=== PATIENT | female | born 1930 ===

== ENCOUNTER 2017-08-06 12:04 | Emergency (ER) | payer MEDICARE, BC ==
[2017-08-06 13:03] VITALS: BP 117/65
--- NOTE | 2017-08-06 13:05 | UC ---
Respiratory Complaint HPI - HPI Summary HPI Summary: 87 y/o female presents to the urgent care accompany by Niece. Pt states she has mild dry cough with weakness since yesterday. Niece reports Pt lives in an assisted living home and when she visited her Yesterday, she was told that Pt hasn't been as active as her usual for the past 2 days. Pt also state mild wheezing at times. Pt denies fever, SOB, chest pain, abdominal pain, N/V/D, urinary symptoms. - History of Current Complaint Chief Complaint: UCRespiratory Stated Complaint: UPPER RESP,DILCIA,FATIGUE Time Seen by Provider: 08/06/17 13:04 Hx Obtained From: Patient, Family/Pediatric Lpn - Niece Hx Last Menstrual Period: n/a Onset/Duration: Gradual Onset, Lasting Days - 2 days, Still Present Timing: Intermittent Episodes Severity Initially: Mild Severity Currently: Mild Pain Intensity: 0 Pain Scale Used: 0-10 Numeric Character: Cough: Nonproductive Aggravating Factors: Recumbent Position Alleviating Factors: Nothing Associated Signs And Symptoms: Positive: Wheezing, Nasal Congestion. Negative: Fever, Chills - Risk Factors Pulmonary Embolism Risk Factors: Negative Cardiac Risk Factors: Hypertension Pseudomonas Risk Factors: Negative Tuberculosis Risk Factors: Negative - Allergies/Home Medications Allergies/Adverse Reactions: Allergies Allergy/AdvReac Type Severity Reaction Status Date / Time No Known Allergies Allergy Verified 08/06/17 13:03 Home Medications: Home Medications Amiodarone TAB* [Cordarone TAB*] 200 mg PO DAILY 08/06/17 [History Confirmed 06/13] Apixaban* [Eliquis*] 1 tab PO BID 08/06/17 [History Confirmed 08/06/17] Cholecalciferol [Vitamin D] 1,000 unit PO DAILY 08/06/17 [History Confirmed 06/13] Cyanocobalamin [Vitamin B 12] 100 mcg PO DAILY 08/06/17 [History Confirmed 08/06] Donepezil TAB* [Aricept 5 MG TAB*] 5 mg PO DAILY 08/06/17 [History Confirmed 06/13] Escitalopram (NF) [Lexapro 5 mg (NF)] 5 mg PO BID 08/06/17 [History Confirmed ] Lacosamide TAB* [Vimpat TAB*] 50 mg PO BID 08/06/17 [History Confirmed 08/06/17] Levothyroxine TAB* [Synthroid TAB*] 75 mcg PO DAILY 08/06/17 [History Confirmed 08/06/17] Probiotic Product [Acidophilus] 1 chw PO BID 08/06/17 [History Confirmed ] PMH/Surg Hx/FS Hx/Imm Hx Previously Healthy: Yes Endocrine History: Hypothyroidism Other Endocrine History: Vitamin D deficiency Cardiovascular History: Hypertension, Atrial Fibrillation Other Neurological History: altzheimer Psychological History: Depression - Surgical History Surgical History: None - Family History Known Family History: Positive: Unknown - Social History Occupation: Retired Lives: Assisted Living Alcohol Use: None Substance Use Type: None Smoking Status (MU): Never Smoked Tobacco Review of Systems Constitutional: Negative, Other - body aches Skin: Negative Eyes: Negative ENT: Negative Respiratory: Cough - dry Cardiovascular: Negative Gastrointestinal: Negative Genitourinary: Negative Motor: Negative Neurovascular: Negative Musculoskeletal: Negative Neurological: Negative Psychological: Negative Is Patient Immunocompromised?: No All Other Systems Reviewed And Are Negative: Yes Physical Exam Triage Information Reviewed: Yes Vital Signs: Initial Vital Signs Temp 98.5 F 08/06/17 12:58 Pulse 62 08/06/17 12:58 Resp 18 08/06/17 12:58 BP 117/65 08/06/17 12:58 Pulse Ox 95 08/06/17 12:58 - Additional Comments Vital Signs Reviewed: Yes General: well developed, well nourished female sitting in the examining table w/ o any apparent distress Eyes: Positive: Conjunctiva Clear - PERRLA, EOMI, fundi grossly normal ENT: Positive: Normal ENT inspection, Hearing grossly normal, Pharynx normal, Nasal congestion - edematous and erythematous nasal mucosa, Nasal drainage with clear drainage, TMs normal. Negative: Tonsillar swelling, Tonsillar exudate Neck: Positive: Supple, Nontender, No Lymphadenopathy Respiratory: no orthopnea or dyspnea. Able to speak in full sentences, no retractions or accessory muscle use, no tripod position, stridor, or head bobbing. positive breath sound. mild wheezing in the left upper posterior lung wheezes, no rhonchi, rales. Cardiovascular: Positive: RRR, No Murmur, Pulses Normal, Brisk Capillary Refill Abdomen Description: Positive: Nontender, No Organomegaly, Soft. Negative: CVA Tenderness (R), CVA Tenderness (L) Bowel Sounds: Positive: Present Musculoskeletal Exam: Normal Musculoskeletal: Positive: Strength Intact, ROM Intact, No Edema Neurological Exam: Normal Psychological Exam: Normal Skin Exam: Normal UC Diagnostic Evaluation - Laboratory O2 Sat by Pulse Oximetry: 95 Respiratory Course/Dx - Course Course Of Treatment: 87 y/o female presents to the urgent care accompany by Liyah. Pt states she has mild cough with weakness since yesterday. Niece reports Pt lives in an assisted living home and when she visited her Yesterday, she was told that Pt hasn't been as active as her usual for the past 2 days. Pt also state mils wheezing at times. Pt denies fever, SOB, chest pain, abdominal pain, N/V/D, urinary symptoms. Hx obtained. Pt A&OX3 with B/L posterior lungs with mild rhochi. Chest X-ray orderned: Impression: Enlarged cardiac siloutte, small b/l effusion. Rapid Influenza: Positive Influenza B. EKG: NSR, HR:60bpm, No /st elevations, Incomplete LBBB. UA:2+proteins. )2Sat: 95 %. Pt's symptoms discussed with Dr Gasca and he recommeded close observation, increase hydration and Rx Tamiflu PO tabs, Tessalon tabs PO, albuterol inhaler. Pt and Niece advised increase fluid intake and eat well. Explained D/C instructions and f/u with PCP in 2 days to see if symptoms are improving. If worsening symptoms to go immediately to the Er for further management. Pt and Niece understood and agreed with plan of care. Pt is hemodynamically stable and left the clinic ambulating A&Ox3 - Differential Dx/Diagnosis Differential Diagnosis/HQI/PQRI: Asthma, Bronchitis, Influenza, Laryngitis, Lower Resp Infection, Sinusitis, Other - pneumonia, Provider Diagnoses: 1- Influenza B. 2-Cough - Physician Notification/Consults Discussed Patient Care With: Alvin Gasca - DR Gasca agreed with Pt's plan of care. Discharge - Discharge Plan Condition: Stable Disposition: HOME Prescriptions: Albuterol HFA INHALER* [Ventolin HFA Inhaler*] 1 - 2 puff INH Q6H PRN #1 mdi PRN Reason: Cough Benzonatate CAP* [Tessalon 100 MG CAP*] 100 mg PO TID #15 cap Oseltamivir CAP* [Tamiflu CAP*] 75 mg PO BID #10 cap Patient Education Materials: Influenza (ED) Referrals: IWONA Salmeron [Primary Care Provider] - 2 Days Additional Instructions: 1- Please give your Aunt the full course of the antiviral to avoid resistance. Encourage hand washing and wear a mask to avoid spreading. 2-Please give Tylenol PO q6-8hrs prn as instructed after meals to alleviate fever, body aches. Encourage Increase fluid intake, eat well, rest and avoid strenuous exercise 3-If she is not drinking plenty of fluids, and she develops fever, SOB, lethargy , please take her immediately to the ER for further evaluation and treatment. Otherwise f/u with her PCP in 2-3 days to she if she is improving.
--- NOTE | 2017-08-06 13:50 | RAD ---
INDICATION: Short of breath. Productive cough. COMPARISON: None TECHNIQUE: PA and lateral dual-energy views were obtained. FINDINGS: Bones/Soft Tissues: There is osteopenia with mild kyphoscoliosis. Cardiomediastinal: The correct silhouette is mildly enlarged. Lungs: There is hyperinflation. There are no focal infiltrates. Pleura: Small bilateral pleural effusions. Other: None IMPRESSION: ENLARGED CARDIAC SILHOUETTE. SMALL BILATERAL EFFUSIONS.
== END 2017-08-06 14:47 | disposition home or self-care (01) ==
LOC: UCCORT 12:04
DX: J11.1 Influenza due to unidentified influenza virus with other respiratory manifestations (principal); R05 Cough; E03.9 Hypothyroidism, unspecified; E55.9 Vitamin D deficiency, unspecified; I10 Essential (primary) hypertension; I48.91 Unspecified atrial fibrillation; G30.9 Alzheimer's disease, unspecified; F02.80 Dementia in other diseases classified elsewhere, unspecified severity, without behavioral disturbance, psychotic disturbance, mood disturbance, and anxiety; F32.9 Major depressive disorder, single episode, unspecified
CPT/HCPCS: 71046; 81003; 87502; 93005; 99212; G0463

== ENCOUNTER 2018-05-09 09:31 | Emergency (ER) | payer MEDICARE, BC ==
--- OUTSIDE RECORDS SUMMARY | 2018-05-09 09:48 | XMS REPORT ---
:1930 External Reference #:[id number] Author Organization [facility] 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 Katalina Lake MD Primary Care Physician Unavailable Payers Type Date Identification Numbers Payment Provider Subscriber Medicare Primary Effective: Policy Number: Medicare Amita Mayorga 2007 [id number] PayID: [id number] [address] [address] [place] [address] [facility] Part B Effective: Policy Number: Daylin Mayorga 2014 [id number] PayID: [id number] [address] [address] [place] [address] Problems Date Description Provider Status Onset: 01/15/2016 Benign essential hypertension Rex Pittman MD Active Onset: 03/06/2016 Hypo-osmolality and or Samreen Goyal ANP Active hyponatremia Onset: 03/06/2016 Paroxysmal atrial fibrillation Samreen Goyal ANP Active Onset: 03/06/2016 Chronic kidney disease stage 3 Samreen Goyal ANP Active Onset: 03/06/2016 Altered mental status Pete Garcia M.D. Active Onset: 03/06/2016 Long-term current use of Rex Pittman MD Active anticoagulant Onset: 05/13/2016 Persistent atrial fibrillation Viktor Brady M.D., Active FACC Onset: 06/09/2016 Chest pain Samreen Goyal ANP Active Onset: 06/09/2016 Mitral valve disorder Samreen Goyal ANP Active Onset: 09/21/2017 Dementia Viktor Brady M.D., Active FACC Onset: 09/21/2017 Senile asthenia Viktor Brady M.D., Active FACC Onset: 03/12/2017 Low blood pressure Viktor Brady M.D., Active FACC Onset: 03/12/2017 Atrial flutter Viktor Brady M.D., Active FACC Social History Type Date Description Comments Lives With Alone Diet Patient follows no dietary restrictions Occupation Currently Working Cigarette Use Patient is a current cigarette smoker, smokes every day ETOH Use Denies alcohol use Daily Caffeine Does Not Consume Caffeine Allergies, Adverse Reactions, Alerts Date Description Reaction Status Severity Comments 01/16/2016 Sodium Fluoride active Medications Medication Date Status Form Strength Qnty SIG Indications Ordering Provider Eliquis 12/27/ Active Tablets 2.5mg 180tab 1 tab by Reba Pittman s karely Goodman MD twice daily Vitamin D3 Super / Active Tablets 2000Unit 1 by Unknown Strength 0000 mouth every day Vitamin B-12 / Active Tablets 500mcg 2 by Unknown Natural 0000 mouth every day Acidophilus / Active Capsules 1 by Unknown Extra Strength 0000 mouth twice daily Vimpat / Active Tablets 50mg 2 by Unknown 0000 mouth twice a day Acetaminophen / Active Tablets 500mg 2 tabs by Unknown 0000 mouth every 8 hours as needed pain, mdd=3g Levothyroxine / Active Tablets 75mcg 1 by Unknown Sodium 0000 mouth every day Donepezil HCL / Active Tablets 10mg take 1 Unknown 0000 tablet by mouth every evening Citalopram / Active Tablets 20mg 1 by Unknown Hydrobromide 0000 mouth every day Ranexa / Active Tablets ER 500mg 1 by Unknown 0000 12HR mouth twice a day Cartia XT / Active Caps ER 120mg 1 by Unknown 0000 24HR mouth every day Famotidine / Active Tablets 20mg 1 tab by Unknown 0000 mouth every day Amiodarone HCL 1025/ Hx Tablets 200mg 90tabs 1 by Jose Antonio, 2015 - mouth Viktor Workman, 09/17/ every day M.DJoanie, [facility] 2018 Verapamil HCL ER 05/13/ Hx Caps ER 120mg 30caps by mouth I10 Jose Antonio, 2015 - 24HR every day Viktor Workman, 05/20/ M.Lita., [facility] 2015 Digoxin 05/13/ Hx Tablets 125mcg 90tabs 1 by I48.0 Jose Antonio 2015 - mouth Viktor Workman, 06/09/ every day M.D., [facility] 2015 Amlodipine 04/08/ Hx Tablets 5mg 90tabs 1 by I10 Brianna Pittman 2015 - mouth MD Rex day 2015 Propafenone HCL 12/27/ Hx Caps ER 225mg 60caps 1 by GILBERTO Pittman 2015 - 12HR mouth MD Rex 01/17/ twice a 2015 day Raloxifene HCL / Hx Tablets 60mg 1 by Unknown 0000 mouth daily (before a meal) Amlodipine / Hx Tablets 2.5mg 1 by I10 Unknown Besylate 0000 - mouth 04/08/ day 2015 Metoprolol / Hx Tablets ER 100mg 135tab 1 1/2 by Janette Pittman ER 0000 - 24HR s mouth MD Rex 05/20/ day 2015 Trazodone HCL / Hx Tablets 50mg 1 by Unknown 0000 mouth every night at bedtime Colace / Hx Capsules 100mg 1 by Unknown 0000 mouth a day Seroquel / Hx Tablets 25mg 1/2 po Unknown 0000 bid Lisinopril / Hx Tablets 5mg 1 by Unknown 0000 mouth every day Verapamil HCL ER / Hx Caps ER 120mg 30caps by mouth R53.83 Jose Antonio, 0000 - 24HR every day Viktor Workman, 02/09/ MMichael, [facility] 2017 I10 I48.0 Levothyroxine Sodium Hx Tablets 175mcg 1 by mouth Unknown every day Fluoxetine HCL (PMDD) Hx Capsules 20mg 1 by mouth Unknown every day Haloperidol Hx Tablets 0.5mg 1 by mouth Unknown twice a day Donepezil HCL - Hx Tablets 5mg 1 by mouth Unknown 09/21/2017 every day Amiodarone HCL Hx Tablets 200mg 1 by mouth Unknown every day Vital Signs Date Vital Result Comment 04/28/2018 BP Systolic Sitting Left Arm 118 mmHg BP Diastolic Sitting Left Arm 62 mmHg Heart Rate 73 /min Respiratory Rate 14 /min O2 Saturation Level with Exercise 97 % 09/21/2017 BP Systolic Sitting Left Arm 110 mmHg BP Diastolic Sitting Left Arm 74 mmHg Heart Rate 64 /min Respiratory Rate 16 /min Weight 158.00 lb 03/12/2017 BP Systolic Sitting Right Arm 132 mmHg BP Diastolic Sitting Right Arm 62 mmHg Heart Rate 57 /min Respiratory Rate 16 /min Height 66 inches 5'6" Weight 136.00 lb BMI (Body Mass Index) 21.9 kg/m2 BSA (Body Surface Area) 1.70 m2 Vera body weight in kilograms 59 02/09/2017 BP Systolic Sitting Right Arm 117 mmHg BP Diastolic Sitting Right Arm 62 mmHg Heart Rate 64 /min Respiratory Rate 12 /min Height 66 inches 5'6" Weight 142.00 lb BMI (Body Mass Index) 22.9 kg/m2 BSA (Body Surface Area) 1.73 m2 Vera body weight in kilograms 59 08/11/2016 BP Systolic Sitting Left Arm 158 mmHg BP Diastolic Sitting Left Arm 78 mmHg Heart Rate 78 /min Respiratory Rate 16 /min Height 66 inches 5'6" Weight 145.00 lb BMI (Body Mass Index) 23.4 kg/m2 BSA (Body Surface Area) 1.74 m2 06/09/2016 BP Systolic Sitting Left Arm 138 mmHg BP Diastolic Sitting Left Arm 70 mmHg Heart Rate 75 /min Respiratory Rate 18 /min Height 66 inches 5'6" Weight 146.00 lb BMI (Body Mass Index) 23.6 kg/m2 BSA (Body Surface Area) 1.75 m2 05/13/2016 BP Systolic Sitting Left Arm 123 mmHg BP Diastolic Sitting Left Arm 59 mmHg Heart Rate 146 /min Height 66 inches 5'6" Weight 150.00 lb BMI (Body Mass Index) 24.2 kg/m2 BSA (Body Surface Area) 1.77 m2 04/08/2016 BP Systolic Sitting Left Arm 168 mmHg machine 159/71 BP Diastolic Sitting Left Arm 68 mmHg machine 159/71 Heart Rate 66 /min Respiratory Rate 16 /min Height 66 inches 5'6" Weight 154.00 lb BMI (Body Mass Index) 24.9 kg/m2 BSA (Body Surface Area) 1.79 m2 03/04/2016 BP Systolic Sitting Right Arm 122 mmHg BP Diastolic Sitting Right Arm 50 mmHg Heart Rate 68 /min Respiratory Rate 16 /min Height 66 inches 5'6" Weight 154.00 lb BMI (Body Mass Index) 24.9 kg/m2 BSA (Body Surface Area) 1.79 m2 01/16/2016 BP Systolic Lying Down Resting Right Arm 150 mmHg BP Diastolic Lying Down Resting Right Arm 68 mmHg Heart Rate 63 /min Height 66 inches 5'6" Weight 153.00 lb BMI (Body Mass Index) 24.7 kg/m2 BSA (Body Surface Area) 1.78 m2 Vera body weight in kilograms 59 Results Test Date Test Result H/L Range Note CBC 04/16/2017 White Blood Count 6.7 K/uL 3.1-10.7 1 Red Blood Count 2.65 M/uL Low 3.90-5.40 1 Hemoglobin 9.8 gm/dL Low 11.6-15.8 1 Hematocrit 29.0 % Low 36.0-46.1 1 Mean Cell Volume 109.4 fl High 80.9-99.0 1 Mean Corpuscular HGB 37.0 pg High 25.9-32.7 1 Mean Corpuscular HGB Conc 33.8 g/dL 30.8-34.3 1 Platelet Count 180 K/uL 150-400 1 Red Cell Distri Width %CV 13.9 % 11.7-14.4 1 Mean Platelet Volume 10.8 fL 8.9-12.4 1 Basic Metabolic Panel 04/16/2017 Glucose 90 mg/dL 74-106 1 BUN 22 mg/dL High 7-18 1 Creatinine 1.2 mg/dL 0.6-1.3 1 Glom Filtration Rate, Estimate 45 mL/min >60 1 If 55 mL/min >60 1, 2 BUN/Creat 18.3 ratio 1 Sodium 138 mmol/L 136-145 1 Potassium 4.0 mmol/L 3.5-5.1 1 Chloride 103 mmol/L 98-107 1 Carbon Dioxide 28 mmol/L 21-32 1 Anion Gap 7 mEq/L Low 8-16 1 Calcium 9.5 mg/dL 8.5-10.1 1 Laboratory test 04/16/2017 Thyroid Stim Hormone 1.07 uIU/mL 0.30-4.20 1 finding Alp SerPl-cCnc 02/14/2017 Alp SerPl-cCnc 62 45-117 Alt SerPl-cCnc 02/14/2017 Alt SerPl-cCnc 22 12-78 Albumin SerPl-mCnc 02/14/2017 Albumin SerPl-mCnc 2.8 3.4-5.0 WBC # Bld Auto 02/14/2017 WBC # Bld Auto 8.9 3.1-10.7 RDW RBC Auto-Rto 02/14/2017 RDW RBC Auto-Rto 16.0 High 11.7-14.4 RBC # Bld Auto 02/14/2017 RBC # Bld Auto 2.84 Low 3.90-5.40 Platelets [#/volume] 02/14/2017 Platelets [#/volume] 191 150-400 in Blood by in Blood by Automated count Automated count PMV Bld Auto 02/14/2017 PMV Bld Auto 10.9 8.9-12.4 MCV RBC Auto 02/14/2017 MCV RBC Auto 113.0 80.9-99.0 MCHC RBC Auto-mCnc 02/14/2017 MCHC RBC Auto-mCnc 33.0 30.8-34.3 MCH RBC Qn Auto 02/14/2017 MCH RBC Qn Auto 37.3 High 25.9-32.7 Hgb Bld-mCnc 02/14/2017 Hgb Bld-mCnc 10.6 Low 11.6-15.8 Hct VFr Bld Auto 02/14/2017 Hct VFr Bld Auto 32.1 36.0-46.1 Sodium SerPl-sCnc 02/14/2017 Sodium SerPl-sCnc 142 136-145 Albumin/Glob SerPl 02/14/2017 Albumin/Glob SerPl 0.9 Anion Gap SerPl-sCnc 02/14/2017 Anion Gap SerPl-sCnc 9 8-16 Aspartate 02/14/2017 Aspartate 20 15-37 aminotransferase aminotransferase [Enzymatic [Enzymatic activity/vol activity/volume] in Serum or Plasma BUN SerPl-mCnc 02/14/2017 BUN SerPl-mCnc 22 High 7-18 BUN/Creat SerPl 02/14/2017 BUN/Creat SerPl 16.9 Bilirub SerPl-mCnc 02/14/2017 Bilirub SerPl-mCnc 0.3 0.2-1.0 Co2 SerPl-sCnc 02/14/2017 Co2 SerPl-sCnc 27 21-32 Calcium SerPl-mCnc 02/14/2017 Calcium SerPl-mCnc 9.0 8.5-10.1 Prot SerPl-mCnc 02/14/2017 Prot SerPl-mCnc 5.9 6.4-8.2 Potassium SerPl-sCnc 02/14/2017 Potassium SerPl-sCnc 3.7 3.5-5.1 Magnesium SerPl-mCnc 02/14/2017 Magnesium SerPl-mCnc 2.2 1.8-2.4 Glucose 02/14/2017 Glucose 86 74-106 [Mass/volume] in [Mass/volume] in Serum or Plasma Serum or Plasma Globulin Ser 02/14/2017 Globulin Ser 3.1 1.9-4.3 Calc-mCnc Calc-mCnc Chloride SerPl-sCnc 02/14/2017 Chloride SerPl-sCnc 106 98-107 Creat SerPl-mCnc 02/14/2017 Creat SerPl-mCnc 1.3 0.6-1.3 GFR/Bsa pred.black 02/14/2017 GFR/Bsa pred.black 50 >60 SerPl MDRD-ArVRat SerPl MDRD-ArVRat GFR/Bsa pred.non 02/14/2017 GFR/Bsa pred.non 41 >60 black SerPl black SerPl MDRD-ArVRat MDRD-ArVRat Basophils [#/volume] 02/13/2017 Basophils [#/volume] 0.04 0.0-0.1 in Blood by in Blood by Automated count Automated count Serum or plasma 02/13/2017 Serum or plasma 215 High 26-192 creatine kinase creatine kinase measurement (enzym measurement (enzymatic activity/volume) RDW RBC Auto 02/13/2017 RDW RBC Auto 61.8 High 3-47 Neutrophils/leuk NFr 02/13/2017 Neutrophils/leuk NFr 75.4 High 40.4-72.8 Bld Auto Bld Auto Neutrophils # Bld 02/13/2017 Neutrophils # Bld 4.59 1.8-7.0 Auto Auto Monocytes/leuk NFr 02/13/2017 Monocytes/leuk NFr 5.8 4.3-13.2 Bld Auto Bld Auto Monocytes # Bld Auto 02/13/2017 Monocytes # Bld Auto 0.35 0.3-0.9 Lymphocytes/leuk NFr 02/13/2017 Lymphocytes/leuk NFr 17.4 Low 20.0-42.0 Bld Auto Bld Auto Lymphocytes 02/13/2017 Lymphocytes 1.06 1.0-4.0 [#/volume] in Blood [#/volume] in Blood by Automated count by Automated count Eosinophil/leuk NFr 02/13/2017 Eosinophil/leuk NFr 0.7 0.0-6.6 Bld Auto Bld Auto Eosinophil # Bld 02/13/2017 Eosinophil # Bld 0.04 0.0-0.5 Auto Auto Basophils/leuk NFr 02/13/2017 Basophils/leuk NFr 0.7 0.0-1.1 Bld Auto Bld Auto Serum or plasma 02/06/2017 Serum or plasma 10.4 3.1-17.5 folate measurement folate measurement (mass/volume) (mass/volume) Serum or plasma 02/06/2017 Serum or plasma 718 193-986 vitamin B12 vitamin B12 measurement measurement (mass/volu (mass/volume) Bacteria Ur Cult 01/03/2017 Bacteria Ur Cult Organism: Escherichia Coli Bacteria [Presence] 01/03/2017 Bacteria [Presence] Moderate High None Seen in Urine sediment by in Urine sediment by Light felipe Light microscopy Bilirub Ur Ql 01/03/2017 Bilirub Ur Ql Negative Negative Strip.auto Strip.auto Color Ur 01/03/2017 Color Ur Yellow Yellow Epithelial cells 01/03/2017 Epithelial cells Few None Seen [Presence] in Urine [Presence] in Urine sediment by L sediment by Light microscopy pH Ur Strip.auto 01/03/2017 pH Ur Strip.auto 6.0 Low 6.5-7.5 Ketones Ur 01/03/2017 Ketones Ur Trace High Negative Strip.auto-mCnc Strip.auto-mCnc Leukocyte esterase 01/03/2017 Leukocyte esterase Large High Negative Ur Ql Strip.auto Ur Ql Strip.auto Nitrite Ur Ql 01/03/2017 Nitrite Ur Ql Positive High Negative Strip.auto Strip.auto Prot Ur 01/03/2017 Prot Ur Negative Negative Strip.auto-mCnc Strip.auto-mCnc Specific gravity of 01/03/2017 Specific gravity of 1.020 1.010-1.030 Urine by Automated Urine by Automated test strip test strip Unloinc 01/03/2017 Unloinc Culture To Follow Urine appearance 01/03/2017 Urine appearance Clear Clear determination determination Urine glucose 01/03/2017 Urine glucose Negative Negative measurement by measurement by automated test strip automated test strip (mass/volume) Urobilinogen Ur 01/03/2017 Urobilinogen Ur 0.2 0.2-1.0 Strip-aCnc Strip-aCnc Urine hemoglobin 01/03/2017 Urine hemoglobin Trace Negative detection by detection by automated test strip automated test strip Comprehensive 05/13/2016 Glucose 114 mg/dL High 74-106 3 Metabolic Panel BUN 17 mg/dL 7-18 3 Creatinine 1.5 mg/dL High 0.6-1.3 3 Glom Filtration Rate, Estimate 35 mL/min >60 3 If 43 mL/min >60 3, 4 BUN/Creat 11.3 ratio 3 Sodium 143 mmol/L 136-145 3 Potassium 3.5 mmol/L 3.5-5.1 3 Chloride 109 mmol/L High 98-107 3 Carbon Dioxide 25 mmol/L 21-32 3 Anion Gap 9 mEq/L 8-16 3 Calcium 8.5 mg/dL 8.5-10.1 3 Total Protein 7.2 g/dL 6.4-8.2 3 Albumin 3.2 g/dL Low 3.4-5.0 3 Globulin 4.0 g/dL 1.9-4.3 3 Alb/Glob 0.8 ratio 3 Bilirubin,Total 0.5 mg/dL 0.2-1.0 3 Sgot/Ast 14 U/L Low 15-37 3, 5 SGPT/Alt 12 U/L 12-78 3 Alkaline Phosphatase 60 U/L 45-117 3 @[facility] Pat Id: [id number] @[facility] Re #: [id number] 3 Is Patient Fasting? Fasting 3 Basic Metabolic Panel 03/04/2016 Glucose 105 mg/dL 74-106 BUN 13 mg/dL 7-18 Creatinine 1.1 mg/dL 0.6-1.3 Glom Filtration Rate, Estimate 50 mL/min >60 If >60 mL/min >60 6 BUN/Creat 11.8 ratio Sodium 140 mmol/L 136-145 Potassium 4.9 mmol/L 3.5-5.1 Chloride 106 mmol/L 98-107 Carbon Dioxide 24 mmol/L 21-32 Anion Gap 10 mEq/L 8-16 Calcium 9.2 mg/dL 8.5-10.1 Basic Metabolic Panel 01/16/2016 Glucose 106 mg/dL 74-106 BUN 19 mg/dL High 7-18 Creatinine 1.8 mg/dL High 0.6-1.3 Glom Filtration Rate, Estimate 28 mL/min >60 If 34 mL/min >60 7 BUN/Creat 10.5 ratio Sodium 126 mmol/L Low 136-145 Potassium 3.5 mmol/L 3.5-5.1 Chloride 90 mmol/L Low 98-107 Carbon Dioxide 24 mmol/L 21-32 Anion Gap 12 mEq/L 8-16 Calcium 9.4 mg/dL 8.5-10.1 Laboratory test finding 01/16/2016 Magnesium 1.6 mg/dL Low 1.8-2.4 Laboratory test finding 12/28/2015 Aot Request Test(s) added 8 Laboratory test finding 12/27/2015 Aot Request Test(s) added 9 1 # [id number] 2 Note: Persistent reduction for 3 months or more in an eGFR <60 mL/min/1.73 m2 defines CKD. Patients with eGFR values >/=60 mL/min/1.73 m2 may also have CKD if evidence of persistent proteinuria is present. The original MDRD equation for estimated GFR is not valid for patients less than 18 years of age. Additional information may be found at www.kdoqi.org. 3 E87.1,I48.0 4 Note: Persistent reduction for 3 months or more in an eGFR <60 mL/min/1.73 m2 defines CKD. Patients with eGFR values >/=60 mL/min/1.73 m2 may also have CKD if evidence of persistent proteinuria is present. The original MDRD equation for estimated GFR is not valid for patients less than 18 years of age. Additional information may be found at www.kdoqi.org. 5 Values below the stated reference ranges of AST and ALT can be seen in normal populations. Clinical correlation is suggested. 6 Note: Persistent reduction for 3 months or more in an eGFR <60 mL/min/1.73 m2 defines CKD. Patients with eGFR values >/=60 mL/min/1.73 m2 may also have CKD if evidence of persistent proteinuria is present. The original MDRD equation for estimated GFR is not valid for patients less than 18 years of age. Additional information may be found at www.kdoqi.org. 7 Note: Persistent reduction for 3 months or more in an eGFR <60 mL/min/1.73 m2 defines CKD. Patients with eGFR values >/=60 mL/min/1.73 m2 may also have CKD if evidence of persistent proteinuria is present. The original MDRD equation for estimated GFR is not valid for patients less than 18 years of age. Additional information may be found at www.kdoqi.org. 8 Tests: free t4 Instructions: 9 Tests: TSH Instructions: Procedures Date CPT Code Description Status 04/28/2018 37890 EKG-Tracing And Report Completed 01/08/2018 34215 EKG Interpretation And Report Only Completed 01/07/2018 21168 Echocardiogram Complete Completed 09/21/2017 52745 EKG-Tracing And Report Completed 03/12/2017 96672 EKG-Tracing And Report Completed 02/13/2017 20735 Cardioversion External Completed 02/09/2017 23290 EKG-Tracing And Report Completed 08/11/2016 29409 EKG-Tracing And Report Completed 06/13/2016 84789 Echocardiogram Complete Completed 06/09/2016 43464 EKG-Tracing And Report Completed 05/13/2016 31037 EKG-Tracing And Report Completed 03/04/2016 59314 EKG-Tracing And Report Completed 01/16/2016 01627 EKG-Tracing And Report Completed 12/28/2015 74205 EKG Interpretation And Report Only Completed 12/27/2015 00343 Echocardiogram Complete Completed 12/27/2015 91683 Event Monitor Inter/Review Only Completed Encounters Type Date Location Provider CPT E/M Dx Office Visit 04/28/2018 2:40p Cardiology Office Katrin Lares 92262 I48.0 Geno MSN, COMPOUNDING TECHNICIAN E03.9 Office Visit 09/21/2017 1:40p Cardiology Office Vitkor Brady, 92501 I48.0 M.Yudith, [facility] R54 F02.80 Office Visit 03/12/2017 2:20p Cardiology Office Viktor Brady, 86717 I48.92 MMichael, FACC I10 I95.9 Office Visit 02/13/2017 2:31p [place] [address] R07.9 R07.9 I48.92 Office Visit 02/09/2017 10:00a Cardiology Office Katrin Lares, 14066 I48.0 MSN, COMPOUNDING TECHNICIAN R53.83 I10 Office Visit 08/11/2016 10:40a Cardiology Office Viktor Brayd, 94545 I48.0 M.DJoanie, FACC R07.9 I10 Office Visit 06/09/2016 10:40a Cardiology Office Samreen Goyal, ANP 10705 I48.0 R07.9 I10 N18.3 E87.1 I34.0 Office Visit 05/13/2016 10:30a Cardiology Office Viktor Brady, 48847 I48.1 M.DJoanie, [facility] I10 N18.3 E87.1 Office Visit 04/08/2016 11:00a Cardiology Office Samreen Goyal., ANP 46326 E87.1 I48.0 I10 N18.3 R41.82 Office Visit 03/04/2016 2:40p Cardiology [place] ANP 33413 E87.1 I48.0 I10 N18.3 Office Visit 01/18/2016 10:27a [place] [address] I48.0 R41.82 Office Visit 01/16/2016 8:40a [place] [address] E87.1 R41.82 I48.0 Z79.01 N18.3 Office Visit 12/27/2015 10:26a [place] [address] I47.1 I48.0 Plan of Care Future Appointment(s):04/28/2019 3:20 pm - Viktor Brady M.D., FACC at [facility]iology [facility]0004/28/2018 - Katrin Lares, MSN, FNPI48.0 Paroxysmal atrial fibrillationComments:Monitor.E03.9 Hypothyroidism, unspecifiedNew Labs: Thyroid Stim HormoneFree T3Free [id number] up:Follow up visit in one year.
[2018-05-09 09:55] VITALS: BP 145/52
--- NOTE | 2018-05-09 10:10 | UC ---
Skin Complaint HPI - HPI Summary HPI Summary: 88 year old F with skin complaint.LEFT SIDE OF FACE RED, SWOLLEN, AND HOT TO TOUCH SINCE THURSDAY. Denies injury to face. NO FEVER. A month ago pt was tx for LEFT ear infection w/ abx. According to the patient's daughter 2 days ago they noticed a small red spot on her left cheek and since then it has spread the area is red and also has been causing some itching sensation. No fevers or chills. There is no discharge or bruising. Daughter is concerned about cellulitis or bacterial infection. No ear pressure or sinus pressure. No coughing or other infectious symptoms of concern. No [id number] medications have been used at this time. According to daughter no exposure to potential insects or plants. [ End ] - History of Current Complaint Chief Complaint: UCSkin Time Seen by Provider: 05/09/18 10:04 Stated Complaint: FACIAL COMPLAINT Hx Obtained From: Patient, Family/Obstetrics Tech Hx Last Menstrual Period: n/a Onset/Duration: Gradual Onset Timing: Constant Pain Intensity: 0 Character: Swelling, Pruritus, Redness Aggravating Factor(s): Nothing Alleviating Factor(s): Nothing - Allergy/Home Medications Allergies/Adverse Reactions: Allergies Allergy/AdvReac Type Severity Reaction Status Date / Time No Known Allergies Allergy Verified 05/09/18 09:49 Home Medications: Home Medications Apixaban* [Eliquis*] 2.5 mg BID 05/09/18 [History Confirmed 05/09/18] Citalopram TAB* [Celexa TAB*] 1 tab DAILY 05/09/18 [History Confirmed 05/09/18] Donepezil TAB* [Aricept 5 MG TAB*] 10 mg BEDTIME 05/09/18 [History Confirmed ] Famotidine TAB* [Pepcid 20 MG TAB*] 1 tab DAILY 05/09/18 [History Confirmed ] Ranolazine (Nf) [Ranexa] 500 mg BID 05/09/18 [History Confirmed 05/09/18] dilTIAZem HCl [Diltiazem ER] 1 tab DAILY 05/09/18 [History Confirmed 05/09/18] Review of Systems Skin: Rash - redness Is Patient Immunocompromised?: No All Other Systems Reviewed And Are Negative: Yes PMH/Surg Hx/FS Hx/Imm Hx Previously Healthy: Yes Endocrine History: Dyslipidemia Cardiovascular History: Cardiac Disease, Atrial Fibrillation - Surgical History Surgical History: None - Family History Known Family History: Positive: Unknown - Social History Occupation: Retired - [employer] Alcohol Use: None Substance Use Type: None Smoking Status (MU): Never Smoked Tobacco - Immunization History Most Recent Tetanus Shot: UTD Physical Exam Triage Information Reviewed: Yes Appearance: Well-Appearing, No Pain Distress, Well-Nourished Vital Signs: Initial Vital Signs Temp 98 F 05/09/18 09:49 Pulse 61 05/09/18 09:49 Resp 16 05/09/18 09:49 BP 145/52 05/09/18 09:49 Pulse Ox 100 05/09/18 09:49 Vital Signs Reviewed: Yes Eye Exam: Normal ENT Exam: Normal ENT: Positive: Normal ENT inspection, Hearing grossly normal, TMs normal Dental Exam: Normal Neck exam: Normal Neck: Positive: Supple, Nontender, No Lymphadenopathy Respiratory Exam: Normal Cardiovascular Exam: Normal Musculoskeletal Exam: Normal Neurological Exam: Normal Psychological Exam: Normal Skin Exam: Normal Skin: Positive: Other - Left cheek with circular erythematous macular patch 1x1 cm with some scattered erythema along the zygomatic process. Mild to moderate diffuse erythema left cheek with redness and warmth to touch with mild tenderness. No discharge or induration abscess or fluctuance. No drainage or ecchymosis. Course/Dx - Course Course Of Treatment: Based on the spreading erythema will treat as potential cellulitis at this time. There does appear to be potential allergic component with the itching and there isn't one macular erythematous patch present all by itself but there are scattered areas present but at this time we discussed steroids and patient declined. If the redness is continuing to spread the doctor is aware patient is failing outpatient treatment and advised to go to emergency room and she is agreeable to this she is appreciative to treat this time to try to prevent any potential worsening cellulitis. Patient aware of the side effects of medication. - Differential Diagnoses - Skin Complaint Differential Diagnoses: Cellulitis, Contact Dermatitis - Diagnoses Provider Diagnoses: cellulitis left side of face Discharge - Sign-Out/Discharge Documenting (check all that apply): Patient Departure All imaging exams completed and their final reports reviewed: No Studies - Discharge Plan Condition: Good Disposition: HOME Prescriptions: Cephalexin CAP* [Keflex CAP*] 500 mg PO TID 10 Days #30 cap Patient Education Materials: Cellulitis (ED) Referrals: Katalina Lake MD [Primary Care Provider] - 2 Days - Billing Disposition and Condition Condition: GOOD Disposition: Home
== END 2018-05-09 10:35 | disposition home or self-care (01) ==
LOC: UCCORT 09:31
DX: L03.211 Cellulitis of face (principal)
CPT/HCPCS: 99212; G0463